=== PATIENT | female | born 1935 | race Caucasian/White ===

== ENCOUNTER 2022-08-26 11:39 | Inpatient (IN) | payer MEDICARE, BC ==
[2022-08-26] VITALS (7 sets, daily range): BP systolic 117–121; BP diastolic 51–58
[~2022-08-26] VITALS: Ht 142.2 cm; Wt 50.3 kg
--- NOTE | 2022-08-26 11:45 | NUR ---
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
[2022-08-26] MEDS ORDERED: IV NS 0.9% 1,000 ML IV ONE (12:00)
--- NOTE | 2022-08-26 12:00 | NUR ---
BLOOD GLUGOSE = >600MG/DL MD MADE AWARE.
--- NOTE | 2022-08-26 12:05 | NUR ---
ESTABLISHED IV LINE LEFT/RIGHT AC 20G ,
--- NOTE | 2022-08-26 12:06 | NUR ---
BLOOD SAMPLE OBTAINED SENT TO LAB
[2022-08-26 12:16] LABS: BASOPHILS # (AUTO) 0.1 K/uL (0.0-0.2); BASOPHILS % (AUTO) 0.6 % (0.0-2.0); HEMATOCRIT 38 % (33-45); HEMOGLOBIN 11.3 g/dL (11.5-14.8); LYMPHOCYTES # (AUTO) 0.6 K/uL (0.8-4.8); LYMPHOCYTES % (AUTO) 3.9 % (20.0-44.0); MEAN CORPUSCULAR HGB CONC 30 g/dl (31.0-36.0); MEAN CORPUSCULAR VOLUME 103 fL (82-100); MONOCYTES % (AUTO) 6.6 % (2.0-12.0); NEUTROPHILS # (AUTO) 13.7 K/uL (1.8-8.9); NEUTROPHILS % (AUTO) 88.9 % (43.0-81.0); PLATELET COUNT (AUTO) 373 K/uL (150-450); RED BLOOD CELL COUNT(AUTO) 3.65 MIL/uL (4.0-5.2); WHITE BLOOD COUNT (AUTO) 15.4 K/uL (4.3-11.0)
--- NOTE | 2022-08-26 12:17 | NUR ---
COVID SWAB TAKEN
[2022-08-26 12:34] LABS: CALCIUM, SERUM 9.6 mg/dL (8.5-10.1); CHLORIDE 94 mmol/L (98-107); CREATININE 2.2 mg/dL (0.6-1.3); POTASSIUM 4.6 mmol/L (3.5-5.1); SODIUM SERUM 136 mmol/L (136-145); UREA NITROGEN, BLOOD 27 mg/dL (7-18)
[2022-08-26 12:52] LABS: ABG BASE EXCESS -19.6 mmol/L; ABG PCO2 19.8 mmHg (35.0-45.0); ABG PH 7.168 (7.350-7.450); ABG PO2 119.3 mmHg (75.0-100.0); COHb 0.2 % (0.5-1.5); MetHb 0.4 % (0.0-1.5); O2Hb 96.6 % (94.0-97.0); SITE, ABG Right Radial; VENT MODE, BG ROOM AIR
[2022-08-26 13:08] LABS: CARBON DIOXIDE 10 mmol/L (21-32); GLUCOSE 907 mg/dL (74-106)
[2022-08-26] MEDS ORDERED: INSULIN REGULAR, HUMAN 100 UNITS in IV NS 0.9% 100 ML IV PRN ×2 (13:30)
[2022-08-26] MEDS ORDERED: IV PREMIX NS +20MEQ KCL 1 L IV PRN (13:30)
[2022-08-26 13:43] LABS: ALANINE AMINOTRANSFERASE 12 U/L (12-78); ALBUMIN 3.8 g/dL (3.4-5.0); ALKALINE PHOSPHATASE 138 U/L (46-116); ASPARTATE AMINOTRANSFERASE 13 U/L (15-37); BILIRUBIN,TOTAL 0.7 mg/dL (0.2-1.0); LIPASE 65 U/L (73-393); TOTAL PROTEIN, SERUM 8.8 g/dL (6.4-8.2)
[2022-08-26] MEDS ORDERED: INSU200I4 SQ (13:54)
[2022-08-26] MEDS ORDERED: LEVO75TA7 PO (13:54)
[2022-08-26] MEDS ORDERED: INSU100I4 SQ (13:54)
[2022-08-26 14:15] LABS: CALCIUM, SERUM 8.7 mg/dL (8.5-10.1); CARBON DIOXIDE 12 mmol/L (21-32); CHLORIDE 101 mmol/L (98-107); CREATININE 1.9 mg/dL (0.6-1.3); MAGNESIUM 2.6 mg/dL (1.8-2.4); PHOSPHORUS 5.7 mg/dL (2.5-4.9); POTASSIUM 5.3 mmol/L (3.5-5.1); SODIUM SERUM 139 mmol/L (136-145); UREA NITROGEN, BLOOD 25 mg/dL (7-18)
[2022-08-26 14:17] LABS: GLUCOSE 731 mg/dL (74-106)
[2022-08-26] MEDS ORDERED: HYDROCODONE/APAP 5/325MG TABLET PO PRN (14:30)
[2022-08-26] MEDS ORDERED: ACETAMINOPHEN 325 MG TABLET PO PRN (14:30)
[2022-08-26] MEDS ORDERED: MAGNESIUM HYDROXIDE 30 ML UDC PO PRN (14:30)
[2022-08-26] MEDS ORDERED: IV NS 0.9% 1,000 ML IV PRN (14:30)
[2022-08-26] MEDS ORDERED: MORPHINE SULFATE INJ 2 MG/ML DISP.SYRIN IV PRN (14:30)
[2022-08-26] MEDS ORDERED: INSULIN REGULAR, HUMAN 100 UNIT in IV NS 0.9% 99 ML IV PRN ×2 (14:30)
[2022-08-26] MEDS ORDERED: Z GUARD REMEDY 4 OZ OINT TP PRN (14:30)
[2022-08-26] MEDS ORDERED: ONDANSETRON HCL/PF 4 MG/2 ML VIAL IVP PRN (14:30)
[2022-08-26] MEDS ORDERED: MAG HYDROX/AL HYDROX/SIMETH 30 ML UDC PO PRN (14:30)
--- NOTE | 2022-08-26 15:10 | NUR ---
BLOOD SAMPLE URINE OBTAINED
--- NOTE | 2022-08-26 15:19 | NUR ---
BED ASSIGNED: [id number]
--- NOTE | 2022-08-26 15:20 | NUR ---
ROOM 257
[2022-08-26 15:36] LABS: CALCIUM, SERUM 8.9 mg/dL (8.5-10.1); CARBON DIOXIDE 15 mmol/L (21-32); CHLORIDE 107 mmol/L (98-107); CREATININE 1.9 mg/dL (0.6-1.3); MAGNESIUM 2.6 mg/dL (1.8-2.4); PHOSPHORUS 4.4 mg/dL (2.5-4.9); POTASSIUM 4.6 mmol/L (3.5-5.1); SODIUM SERUM 145 mmol/L (136-145); UREA NITROGEN, BLOOD 27 mg/dL (7-18)
[2022-08-26 15:39] LABS: GLUCOSE 605 mg/dL (74-106)
--- NOTE | 2022-08-26 15:40 | NUR ---
REPORT GIVEN TO DOMINGA HATFIELD
--- NOTE | 2022-08-26 15:52 | NUR ---
MOVE TO INPATIENT ROOM SAFELY PER ACLS PROTOCOL
[2022-08-26] MEDS ORDERED: IV PREMIX NS +20MEQ KCL 1 L IV ONE (16:22)
[2022-08-26 16:47] LABS: BILIRUBIN,URINE NEGATIVE (NEGATIVE); COLOR,URINE YELLOW (YELLOW); LEUKOCYTE ESTERASE ,URINE NEGATIVE (NEGATIVE); NITRITE, URINE NEGATIVE (NEGATIVE); PH,URINE 5.5 (5.0-8.0); PROTEIN,URINE NEGATIVE (NEGATIVE); UGLUCOSE 3+ mg/dL (NEGATIVE); UROBILINOGEN,URINE 0.2 EU/dL (0.2)
[2022-08-26] MEDS ORDERED: Potassium Chloride 20 MEQ in IV NS 0.9% 1,000 ML IV SCH ×2 (17:00→21:00)
[2022-08-26] MEDS: BLOOD SUGAR DIAGNOSTIC 1 EACH STRIP IN SCH ×7 (17:06→22:58)
[2022-08-26 17:12] LABS: BACTERIA,URINE Few /HPF (None Seen); SQUAMOUS EPITHELIAL CELL,UR Few /HPF (None Seen); WBC,URINE 0-2 /HPF (0-3)
[2022-08-26 18:45] LABS: CALCIUM, SERUM 8.6 mg/dL (8.5-10.1); CARBON DIOXIDE 17 mmol/L (21-32); CHLORIDE 114 mmol/L (98-107); CREATININE 1.6 mg/dL (0.6-1.3); POTASSIUM 4.7 mmol/L (3.5-5.1); SODIUM SERUM 147 mmol/L (136-145); UREA NITROGEN, BLOOD 24 mg/dL (7-18)
[2022-08-26 18:49] LABS: GLUCOSE 378 mg/dL (74-106)
--- NOTE | 2022-08-26 19:15 | NUR ---
RN OPENING NOTES RECEIVED PATIENT ON BED, SLEEPING BUT AROUSABLE, ON ROOM AIR SATING AT 97%, NOTED WITH RAC #20 AND LAC #20 PERIPHERAL LINE. FLUSHED WITH NS. RUNNING WITH INSULIN DRIP @ 4 ML/HR, NS WITH 20 MEQ KCL @ 150 ML/HR. BARRAZA CATHETER INTACT, DRAINING WITH CLEAR YELLOW URINE VIA GRAVITY. ALL SAFETY PRECAUTION PROVIDED. BED IN LOWEST POSITION, LOCKED. CALL LIGHT WITH IN REACH.
--- NOTE | 2022-08-26 19:35 | NUR ---
RN NOTES NOTIFIED NAMRATA REDDY, ABOUT LATEST BLOOD SUGAR TAKEN AT 1900 BS - 294, BASE ON PROTOCOL, THE FLUID SHOULD BE CHANGED TO D5 1/2 NS WITH 20MEQ KCL @ 150 ML/HR, CURRENTLY AT NS WITH 20 MEQ KCL @ 150 ML/MIN. PER BARRY OK TO CHANGE THE FLUID, NOTIFIED PHARMACY.
[2022-08-26] MEDS ORDERED: Potassium Chloride 20 MEQ in IV D5/0.45 NACL 1,000 ML IV SCH (20:00)
[2022-08-26 22:46] LABS: CALCIUM, SERUM 8.3 mg/dL (8.5-10.1); CARBON DIOXIDE 23 mmol/L (21-32); CHLORIDE 117 mmol/L (98-107); CREATININE 1.5 mg/dL (0.6-1.3); GLUCOSE 301 mg/dL (74-106); POTASSIUM 4.5 mmol/L (3.5-5.1); SODIUM SERUM 148 mmol/L (136-145); UREA NITROGEN, BLOOD 22 mg/dL (7-18)
[2022-08-26] MEDS ORDERED: DEXTROSE 50%-WATER 50 ML DISP.SYRIN IV PRN (23:30)
[2022-08-26] MEDS ORDERED: IV D5/ 0.9% NACL 1,000 ML IV PRN (23:30)
--- NOTE | 2022-08-26 23:30 | NUR ---
RN NOTES NOTIFIED NAMRATA REDDY REGARDING LATEST BMP, ANION GAP- 12, BLOOD SUGAR 272, WITH NEW ORDER NOTED AND CARRIED OUT.
[2022-08-26] MEDS ORDERED: INSULIN GLARGINE, 100 UNIT/ML CARTRIDGE SQ ONE (23:50)
[2022-08-27] VITALS (13 sets, daily range): BP systolic 108–132; BP diastolic 47–73
[2022-08-27] MEDS: INSULIN GLARGINE, 100 UNIT/ML CARTRIDGE SQ SCH ×2 (00:08→21:51)
[2022-08-27 04:08] LABS: BASOPHILS % (AUTO) 0.3 % (0.0-2.0); EOSINOPHILS % (AUTO) 15.7 % (0.0-6.0); HEMATOCRIT 26 % (33-45); HEMOGLOBIN 8.8 g/dL (11.5-14.8); LYMPHOCYTES # (AUTO) 0.8 K/uL (0.8-4.8); LYMPHOCYTES % (AUTO) 6.6 % (20.0-44.0); MEAN CORPUSCULAR HGB CONC 34 g/dl (31.0-36.0); MEAN CORPUSCULAR VOLUME 94 fL (82-100); MONOCYTES # (AUTO) 1.2 K/uL (0.1-1.30); MONOCYTES % (AUTO) 9.7 % (2.0-12.0); NEUTROPHILS # (AUTO) 8.1 K/uL (1.8-8.9); NEUTROPHILS % (AUTO) 67.7 % (43.0-81.0); PLATELET COUNT (AUTO) 255 K/uL (150-450); RED BLOOD CELL COUNT(AUTO) 2.76 MIL/uL (4.0-5.2); WHITE BLOOD COUNT (AUTO) 11.9 K/uL (4.3-11.0)
[2022-08-27 04:27] LABS: CALCIUM, SERUM 7.8 mg/dL (8.5-10.1); CREATININE 1.3 mg/dL (0.6-1.3); MAGNESIUM 2.1 mg/dL (1.8-2.4); PHOSPHORUS 2.5 mg/dL (2.5-4.9); POTASSIUM 4.5 mmol/L (3.5-5.1)
[2022-08-27 04:39] LABS: THYROID STIMULATING HORMONE 0.317 uIU/mL (0.358-3.74)
--- NOTE | 2022-08-27 05:35 | NUR ---
RN NOTES NOTIFIED NAMRATA REDDY, REGARDING LATEST BLOOD GLUCOSE- 378 WITH NEW ORDER DC D5 NS @ 100 ML/HR AND CHANGED TO NS @ 100 ML/HR NOTED AND CARRIED OUT.
[2022-08-27] MEDS: IV NS 0.9% 1,000 ML IV PRN ×2 (05:47→17:59)
--- NOTE | 2022-08-27 07:20 | NUR ---
RN OPENING NOTES RECEIVED REPORT FROM NIGHTSORFT RN FADI. PATIENT ASLEEP IN BED ON ROOM AIR, OXYGEN SATURATION AT 96%. PATIENT ALERT AND ORIENTED TIMES 2, AND DROWSY. STATUS POST INSULIN DRIP, PER NIGHTSHIFT RN DRIP WAS DISCONTINUED AT 2330. CURRENT TELEMETRY READING SHOWING NORMAL SINUS WITH HEART RATE AT 93 BEATS PER MINUTE. IV ACCESS ON LEFT AND RIGHT ANTECUBITAL BOTH 20 GAUGE, RUNNING FLUIDS ORDERED. SKIN INTACT, BARRAZA CATHETER ATTACHED DRAINING OUTPUT. SAFETY MEASURES IMPLEMENTED WILL CONTINUE PLAN OF CARE AND ANTICIPATE NEEDS.
[2022-08-27] MEDS: LEVOTHYROXINE SODIUM 75 MCG TABLET PO SCH (07:25)
[2022-08-27] MEDS: BLOOD SUGAR DIAGNOSTIC 1 EACH STRIP IN SCH ×4 (07:34→21:49)
--- NOTE | 2022-08-27 07:37 | NUR ---
CALLED PHARMACY REGARDING PATIENTS REGULAR INSULIN FOR SUBCUTANEOUS INJECTION. ORDER EXISTS IN [facility] BUT NO INSULIN ON THE UNIT. PHARMACY HEALTH ASSOCIATE STATED THEY WOULD BRING THE INSULIN UP SOON POSSIBLE.
[2022-08-27] MEDS: PANTOPRAZOLE 40 MG VIAL IV SCH (08:30)
[2022-08-27] MEDS: INSULIN REGULAR, HUMAN 100 UNIT/ML 3 ML VIAL SQ PRN ×3 (08:52→21:53)
--- NOTE | 2022-08-27 09:18 | NUR ---
HAND OFF REPORT GIVEN TO LIU RINALDI IN [place]. PATIENT WILL BE TRANSFERRED TO ROOM 102
--- NOTE | 2022-08-27 09:33 | NUR ---
MS RN NOTES RECEIVED PATIENT FROM ICU, PATIENT EYES CLOSED, DROWSY BUT RESPONDS TO NAME AND TOUCH, ON ROOM AIR, O2 SAT >95%. DENIES SOB/PAIN AT THIS TIME. OXYGEN SATURATION AT 96%. IV ACCESS ON LEFT AND RIGHT ANTECUBITAL BOTH 20 GAUGE, RUNNING FLUIDS ORDERED. BOTH SITES CLEAR. SKIN INTACT, BARRAZA CATHETER IN PLACE. DRAINING WITH ADEQUATE OUTPUT. SAFETY MEASURES IMPLEMENTED CALL LIGHT WITHIN REACH. WILL CONTINUE PLAN OF CARE. WILL CONT TO MONITOR.
--- NOTE | 2022-08-27 11:45 | NUR ---
RN NOTES DR. ROMAN NOTIFIED, PT'S SISTER WANTS TO TALK TO HIM. ALSO THEY HAVE THEIR ENDOCRINOLOGISTS WHO ALSO WANT TO TALK TO HIM SISTER'S PHONE NUMBER: ABIGAIL SHER [phone]
--- NOTE | 2022-08-27 18:28 | NUR ---
REPAIR ELECTRIC MOTOR ASSEMBLER CLOSING NOTES ALL DUE MEDS AND TX GIVEN ORDERS. PT TOLERATED EVERYTHING WELL. NO COMPLAINTS OF PAIN OR DISCOMFORT AT THIS TIME. IV ACCESS ON RAC 20G PATENT AND INTACT. HOB ELEVATED TO 30-45 DEGREES. SIDERAILS UP AT ALL TIMES. CALL LIGHT WITHIN REACH. WILL ENDORSE TO ONCOMING NURSE.
--- NOTE | 2022-08-27 19:10 | NUR ---
RN NOTES RECEIVED REPORT FROM MORNING NURSE PATIENT IN BED A/O 2 WITH PERIODS OF CONFUSION. WITH IV ACCESS AT R AC # 20 PATENT FLUSHES WELL. WITH CONTINUOS IVF NS 1OO CC/HR. ON ROOM AIR SATING 99% NO SOB NO DISTRESS NOTED AT THIS TIME. ALL SAFETY MEASURES IN PLACE AT ALL TIMES. HOB ELEVATED. CALL LIGHT WITHIN REACH. WILL CLOSELY MONITOR THE PATIENT
[2022-08-28 04:00] VITALS: BP 121/54
[2022-08-28] MEDS: IV NS 0.9% 1,000 ML IV PRN (05:38)
[2022-08-28 06:10] LABS: BASOPHILS # (AUTO) 0.1 K/uL (0.0-0.2); BASOPHILS % (AUTO) 1.1 % (0.0-2.0); EOSINOPHILS % (AUTO) 1.3 % (0.0-6.0); HEMATOCRIT 27 % (33-45); HEMOGLOBIN 9.1 g/dL (11.5-14.8); LYMPHOCYTES # (AUTO) 1.8 K/uL (0.8-4.8); LYMPHOCYTES % (AUTO) 22.6 % (20.0-44.0); MEAN CORPUSCULAR HGB CONC 34 g/dl (31.0-36.0); MEAN CORPUSCULAR VOLUME 95 fL (82-100); MONOCYTES # (AUTO) 0.6 K/uL (0.1-1.30); MONOCYTES % (AUTO) 8.1 % (2.0-12.0); NEUTROPHILS # (AUTO) 5.2 K/uL (1.8-8.9); NEUTROPHILS % (AUTO) 66.9 % (43.0-81.0); PLATELET COUNT (AUTO) 230 K/uL (150-450); RED BLOOD CELL COUNT(AUTO) 2.85 MIL/uL (4.0-5.2); WHITE BLOOD COUNT (AUTO) 7.8 K/uL (4.3-11.0)
--- NOTE | 2022-08-28 06:45 | NUR ---
RN NOTES ALL DUE MEDS AND TX GIVEN ORDERS. PT TOLERATED EVERYTHING WELL. NO COMPLAINTS OF PAIN OR DISCOMFORT AT THIS TIME. IV ACCESS ON RAC 20G PATENT AND INTACT. HOB ELEVATED TO 30-45 DEGREES. SIDERAILS UP AT ALL TIMES. CALL LIGHT WITHIN REACH. WILL ENDORSE TO ONCOMING NURSE.
[2022-08-28 07:12] LABS: ALBUMIN 2.4 g/dL (3.4-5.0); BILIRUBIN,TOTAL 0.5 mg/dL (0.2-1.0); CALCIUM, SERUM 7.6 mg/dL (8.5-10.1); CREATININE 0.9 mg/dL (0.6-1.3); MAGNESIUM 1.9 mg/dL (1.8-2.4); PHOSPHORUS 1.7 mg/dL (2.5-4.9); POTASSIUM 3.2 mmol/L (3.5-5.1)
--- NOTE | 2022-08-28 07:25 | NUR ---
MS RN OPENING NOTE RECEIVED PT IN BED. PT ALERT AND ORIENTED X3. ON ROOM AIR. NO PAIN OR DISCOMFORT NOTED AT THIS TIME. PT HAS IV ACCESS ON LEFT AC. IV INTACT, PATENT AND FLUSHING WELL. ALL SAFETY MEASURES IN PLACE. CALL LIGHT WITHIN REACH. BED LOCKED AT LOWEST POSITINO.SIDE RAILS UP X2.BED ALARM ON.
[2022-08-28] MEDS: BLOOD SUGAR DIAGNOSTIC 1 EACH STRIP IN SCH ×2 (07:44→11:49)
--- NOTE | 2022-08-28 07:45 | NUR ---
rn note received critical lab glucose is 46, rechecked with finger stick. bs 33, orange juice given,
[2022-08-28] MEDS: LEVOTHYROXINE SODIUM 75 MCG TABLET PO SCH (08:10)
[2022-08-28] MEDS: PANTOPRAZOLE 40 MG VIAL IV SCH (08:11)
--- NOTE | 2022-08-28 08:33 | NUR ---
rn note after dextrose was given, bs 233. notified dr. stafford. will follow-up
[2022-08-28] MEDS ORDERED: PANTOPRAZOLE 40 MG/PACK PACK PO SCH (09:00)
--- NOTE | 2022-08-28 09:52 | NUR ---
rn note protonix pack not given 0900, protonix IV given earlier
[2022-08-28] MEDS ORDERED: POTASSIUM PHOSPHATE MM 7.5 MMOL in IV NS 0.9% 100 ML IV SCH (12:00)
--- NOTE | 2022-08-28 13:02 | NUR ---
rn note spoke with dr. stafford said to hold insulin for now. current bs is 189
[2022-08-28] MEDS ORDERED: NEUTRA PHOS 1 POWD.PACKET PO ONE (15:00)
[2022-08-28] MEDS ORDERED: POTASSIUM CHLORIDE 20 MEQ POWDER PACKET PO ONE (15:00)
--- NOTE | 2022-08-28 17:33 | NUR ---
groover and turner note patient discharged. removed iv. discharged with patient belongings. picked up niece. went over discharge paperwork.verbalized understanding. escorted by wheelchair to lobby and picked up niece. stable condition
== END 2022-08-28 17:24 | disposition home health service (06) | DRG 637 ==
LOC: ER 11:40 → ICU 15:39 → MEDSG1 08-27 09:27
PROVIDERS: ADMIT Nurse Practitioner Acute Care
DX: E11.10 Type 2 diabetes mellitus with ketoacidosis without coma (principal); G93.41 Metabolic encephalopathy; N17.0 Acute kidney failure with tubular necrosis; E03.9 Hypothyroidism, unspecified; E83.41 Hypermagnesemia; E86.0 Dehydration; E87.5 Hyperkalemia; Z79.4 Long term (current) use of insulin; Z88.0 Allergy status to penicillin; Z88.2 Allergy status to sulfonamides; Z90.710 Acquired absence of both cervix and uterus
CPT/HCPCS: 36415; 36600; 71045-TC; 80048-TC; 80053-TC; 80061-TC; 81001; 82010-TC; 82962-TC; 83690-TC; 83735-TC; 84100-TC; 84443-TC; 85025-TC; 87081-TC; C9113; C9803; G0378; J1815; J3480; J3490; J7030; J7042